=== PATIENT | male | born 1975 | race Hispanic/Latino ===

== ENCOUNTER 2018-12-23 20:32 | Emergency (ER) | payer OTHER ==
[2018-12-23 20:35] VITALS: RESP 16; O2SAT 98
--- NOTE | 2018-12-23 21:10 | ED PDOC ---
HPI: Psych/Substance Abuse Time Seen by Provider: 12/23/18 20:50 Chief Complaint (Nursing): Alcohol Ingestion Chief Complaint (Provider): etoh History Per: Patient, EMS, Other (police) Additional Complaint(s): 43 y/o male brought in by EMS, escorted by police, for evaluation of alcohol intoxication. As per EMS, 911 was called due to patient yelling and screaming from his apartment. Patient awake, admits to drinking today, states he drinks every day. Patient states he has a flight at 8:00 tomorrow morning to [place] for rehab. Patient denies suicidal/homicidal ideations, acute physical complaints Past Medical History Reviewed: Historical Data, Nursing Documentation, Vital Signs Vital Signs: Last Vital Signs Temp 97.9 F 12/23/18 20:34 Pulse 86 12/23/18 20:34 Resp 16 12/23/18 20:34 BP 143/81 12/23/18 20:34 Pulse Ox 98 12/23/18 20:34 Primary Care Provider: FAMILY PROVIDER,NO - Medical History PMH: Anxiety, Depression - Surgical History Surgical History: No Surg Hx - Family History Family History: States: Unknown Family Hx - Social History Current smoker - smoking cessation education provided: No Alcohol: > 2 Drinks/Day Drugs: Denies - Immunization History Hx Tetanus Toxoid Vaccination: No Hx Influenza Vaccination: No Hx Pneumococcal Vaccination: No - Allergies Allergies/Adverse Reactions: Allergies Allergy/AdvReac Type Severity Reaction Status Date / Time No Known Allergies Allergy Verified 12/23/18 20:34 Review of Systems ROS Statement: Except As Marked, All Systems Reviewed And Found Negative Physical Exam - Reviewed Nursing Documentation Reviewed: Yes Vital Signs Reviewed: Yes - Physical Exam Appears: Positive for: Well, Non-toxic, Uncomfortable (agitated) Head Exam: Positive for: ATRAUMATIC, NORMAL INSPECTION, NORMOCEPHALIC Skin: Positive for: Normal Color Eye Exam: Positive for: Normal appearance ENT: Positive for: Normal ENT Inspection Cardiovascular/Chest: Positive for: Regular Rate, Rhythm Respiratory: Positive for: Normal Breath Sounds Gastrointestinal/Abdominal: Positive for: Normal Exam Back: Positive for: Normal Inspection Extremity: Positive for: Normal ROM Neurological/Psych: Positive for: Awake, Alert, Oriented (x3) - ECG O2 Sat by Pulse Oximetry: 98 - Progress ED Course And Treament: -accucheck -alcohol level 22:45 at bedside, states she would like to take patient home as he needs to be on the plane in the am for rehab Patient AAOx3. Ambulating steady gait Stable for discharge Disposition - Clinical Impression Clinical Impression: Alcohol abuse with intoxication - Patient ED Disposition Is Patient to be Admitted: No Counseled Patient/Family Regarding: Studies Performed, Diagnosis, Need For Followup - Disposition Disposition: Routine/Home Disposition Time: 22:51 Condition: IMPROVED Instructions: Alcohol Use - When Is Drinking a Problem?
[2018-12-23 23:02] VITALS: BP 133/76; PULSE 80; TEMP 97.7
== END 2018-12-23 23:00 | disposition home or self-care (01) ==
LOC: H.ER 20:32
DX: F10.129 Alcohol abuse with intoxication, unspecified (principal); F32.9 Major depressive disorder, single episode, unspecified; F41.9 Anxiety disorder, unspecified